=== PATIENT | male | born 1955 | race American Indian/Alaskan Native ===

== ENCOUNTER 2021-04-01 10:39 | Outpatient (CLI) | payer MEDICARE ==
--- NOTE | 2021-04-01 12:29 | Fluoroscopy Report ---
BARIUM SWALLOW Indication: GLOBUS SENSATION. Technique: Single and double contrast barium technique utilized to evaluate the esophagus. FINDINGS: To begin the exam, swallowing was evaluated in the lateral position under direct fluorosco py. Swallowing was normal. No mucosal irregularity, mass, mass effect, or critical stenosis. No abnormality was demonstrated in the laryngeal region or upper esophagus at the site of the patient's globus sensation. Occasional ter tiary contractions were noted in the mid and distal esophagus throughout this exam consistent with mi ld dysmotility. No gastroesophageal reflux or hiatal hernia was witnessed. The patient was able to in gest and pass a barium tablet without difficulty. IMPRESSION: No anatomical abnormality is detected to explain the globus sensation. Occasional tertia ry contractions were noted in the mid to distal esophagus consistent with mild esophageal dysmotility . Fluoroscopic time: 1.7 minutes Number of fluoroscopic images: 42 Signer Name: Poli Conner Jr, MD Signed: 04/01/2021 12:24 PM Workstation Name: [id number]
== END 2021-04-01 10:40 | disposition home or self-care (01) ==
LOC: FLUORO 10:39
PROVIDERS: ATTEND Otolaryngology
DX: R09.89 Other specified symptoms and signs involving the circulatory and respiratory systems (principal)
CPT/HCPCS: 74220

== ENCOUNTER 2021-06-14 14:29 | Outpatient (CLI) | payer MEDICARE ==
--- NOTE | 2021-06-14 15:18 | XRay Report ---
CHEST 2 VIEWS INDICATION / CLINICAL INFORMATION: TB. COMPARISON: None available. FINDINGS: SUPPORT DEVICES: Stable, satisfactory device positioning. HEART / MEDIASTINUM: No significant abnormality. LUNGS / PLEURA: Chronic hyperinflation mild interstitial prominence. No focal consolidation or cavita ry process. No pneumothorax. ADDITIONAL FINDINGS: No significant additional findings. IMPRESSION: 1. No acute findings. Signer Name: Drew Hamilton MD Signed: 06/14/2021 3:14 PM Workstation Name: [place] [id number]
== END 2021-06-14 14:30 | disposition home or self-care (01) ==
LOC: XRAY 14:29
PROVIDERS: ATTEND Internal Medicine
DX: J84.9 Interstitial pulmonary disease, unspecified (principal); R91.8 Other nonspecific abnormal finding of lung field; A15.8 Other respiratory tuberculosis
CPT/HCPCS: 71046